=== PATIENT | male | born 1955 | race Caucasian/White ===

== ENCOUNTER → 2024-04-22 14:17 | Outpatient (REF) | payer OTHER, SELFPAY | LOC: HWRAD 14:17 | PROVIDERS: ATTENDING PHYSICIAN Family Medicine | DX: M25.552 Pain in left hip (principal) | CPT/HCPCS: 73502 ==

== ENCOUNTER 2024-04-25 23:23 | Inpatient (IN) | payer OTHER, SELFPAY ==
[2024-04-25 19:06] VITALS: BP 168/101; BMI 28.1
[2024-04-25] MEDS: TYLENOL 1000 MG PO (19:12)
[2024-04-25 19:36] LABS: COVID-19 Antigen Negative (Negative)
[2024-04-25] MEDS: NSS 1000 IV (20:04)
[2024-04-25 20:07] VITALS: BP 128/69
[2024-04-25 20:12] LABS: % Basophils 0.1 % (0-2); % Immature Granulocytes 0.4 % (0-0.5); % Lymphocytes 4.1 % (20.5-51.1); % Monocytes 5.8 % (1.7-9.3); % Neutrophils 89.6 % (42.2-75.2); Absolute Lymphocytes 0.4 10^3/uL (1.2-3.4); Absolute Monocytes 0.5 10^3/uL (0.1-0.6); Absolute Neutrophils 7.6 10^3/uL (1.4-6.5); Hematocrit 43.3 % (39.0-52.0); Hemoglobin 15.2 g/dL (13.0-18.0); Mean Corp Hgb Conc. 35.1 g/dL (33.0-37.0); Mean Corpuscular Hgb 29.7 pg (27.0-31.0); Mean Corpuscular Volume 84.6 fL (80.0-94.0); Mean Platelet Volume 9.6 fL (7.4-10.4); Nucleated Red Blood Cells % 0 % (-); Platelet Count 220 10^3/uL (130-400); Red Blood Cell Count 5.12 10^6/uL (4.70-6.10); Red Cell Dist. Width 13.1 % (11.5-14.5); White Blood Cell Count 8.5 10^3/uL (4.8-10.8)
[2024-04-25 20:30] LABS: ALT (SGPT) 49 U/L (0-50); AST (SGOT) 39 U/L (17-59); Albumin 4.3 g/dl (3.5-5.0); Alkaline Phosphatase 73 U/L (38-126); Blood Urea Nitrogen 21 mg/dl (9-20); Calcium 9.1 mg/dl (8.4-10.2); Carbon Dioxide 23 mmol/L (22-30); Chloride 104 mmol/L (98-107); Estimated Creatinine Clearance 73 ml/min; Glucose 134 mg/dl (70-99); Lactic Acid 0.9 mmol/L (0.7-2.0); Lipase 81 U/L (23-300); Potassium 3.9 mmol/L (3.5-5.1); Sodium 135 mmol/L (135-145); Total Bilirubin 1.1 mg/dl (0.2-1.3); Total Protein 7.2 g/dl (6.3-8.2); eGFR > 60.00
--- NOTE | 2024-04-25 20:34 | ED.GENMED ---
History of Present Illness
General
Chief Complaint: Abdominal Symptoms
Source: patient
Exam Limitations: none
Time Seen by Provider: 04/25/24 19:52
Nursing documentation reviewed up to this point in time: agreed with
History of Present Illness
History of Present Illness:
The patient is a 68-year-old man with a past medical history of diverticulitis who presents with 3 days of left lower abdominal pain. Patient reports that the symptoms nearly go away during the day but got worse at night. Currently, patient states
the pain is sharp when he coughs and touches the area and is associated with nausea. He denies diarrhea and constipation. He denies any urinary symptoms.
Past History
Past History
ED Past Medical History: HTN and Hypercholesterolemia
ED Past Surgical History: Orthopedic
Social History
Tobacco: Non-smoker
Alcohol: Other
Personal:
Living: with family
Employment: Employed
Family History
Family History: Other
Review of Systems
Review of Systems
Allergies reviewed?: Yes
All Other Systems: ROS reviewed and negative except as documented in HPI and ROS
Constitutional: Reports no symptoms
EENT: Reports no symptoms
Respiratory: Reports no symptoms
Cardiac: Reports no symptoms
ABD/GI: Reports abdominal pain and nausea
: Reports no symptoms
Musculoskeletal: Reports no symptoms
Skin: Reports no symptoms
Neurological: Reports no symptoms
Endocrine: Reports no symptoms
Hematologic/Lymphatic: Reports no symptoms
Psychiatric: Reports no symptoms
Phy Exam
Physical Exam
Physical Exam:
Physical Exam
General: no apparent distress but flushed
Neck: supple. no meningeal signs. normal psoterior pharynx
Heart: s1/s2 regular rate and rhythm, no murmur. equal radial pulses.
Lungs: no acute respiratory distress. clear bilaterally
Abdomen: normal bowel sounds. not tender. Left lower quadrant tenderness. No rebound or guarding. No pulsatile mass
Neuro: alert and oriented. no focal neurological deficits
Skin: no rash
Psychiatric: well kept. interactive and cooperative
Extremities: no edema. no calf tenderness. negative homans. good distal pulses
Course
Orders/Labs/Results
Orders:
Orders
04/25/24 19:11
Acetaminophen [Tylenol] 1,000 mg .ROUTE .STK-MED ONE
04/25/24 19:12
Acetaminophen [Tylenol] 1,000 mg PO NOW STA
04/25/24 19:13
COVID-19 Antigen Urgent
Source: Nasal Swab
04/25/24 19:53
0.9% Sodium Chloride 1000 ml [Nss] 1,000 ml IV BOLUS
04/25/24 19:58
Complete Blood Count/With Diff Urgent
Comprehensive Metabolic Panel Urgent
Lactic Acid Urgent
Lipase Urgent
04/25/24 20:34
CT Abd/pelvis W Iv Cont Urgent
Comment:
Reason For Exam: LLQ pain
04/25/24 20:35
Ketorolac [Toradol] 30 mg IV NOW STA
Ondansetron Injectable [Zofran] 4 mg IV NOW STA
04/25/24 22:50
MetroNIDAZOLE 500 MG/100 ML [Flagyl 500 mg] 100 ml IV ONCE
04/25/24 22:51
LevoFLOXacin 500 MG/100 ML [Levaquin] 500 mg in 100 ml IV NOW
04/25/24 23:14
Urinalysis Reflex To Culture Urgent
Date Specimen was Collected: 04/25/24
Time Specimen was Collected: 23:14
Abnormal Lab Results
04/25/24
19:58
Absolute Neuts (auto) 7.6 H 10^3/uL
(1.4-6.5)
Absolute Lymphs (auto) 0.4 L 10^3/uL
(1.2-3.4)
Neutrophils % 89.6 H %
(42.2-75.2)
Lymphocytes % 4.1 L %
(20.5-51.1)
BUN 21 H mg/dl
(9-20)
Glucose 134 H mg/dl
(70-99)
04/25/24 19:58
04/25/24 19:58
Vital Signs
Initial and Last Documented VS:
Initial Vital Signs
Temp Pulse Resp BP Pulse Ox
100.5 F H 111 20 168/101 98
04/25/24 19:06 04/25/24 19:06 04/25/24 19:06 04/25/24 19:06 04/25/24 19:06
Last Documented Vital Signs
Temp Pulse Resp BP Pulse Ox
100.5 F H 106 15 128/69 98
04/25/24 19:06 04/25/24 20:07 04/25/24 20:07 04/25/24 20:07 04/25/24 19:06
MDM/Problems Addressed
Differential Diagnosis Includes:
Uncomplicated diverticulitis, diverticulitis with perforation, diverticulitis with abscess, UTI
MDM/Problems Addressed:
Patient presents with acute fever and left lower abdominal pain
Chronic conditions affecting care:
Patient may have acute diverticulitis from chronic diverticulosis
Acute Exacerbation and/or Progression of Chronic Illness:
Patient may have acute diverticulitis from chronic diverticulosis
*Radiology
Radiology exam reviewed: radiology read reviewed
*Pulse Oximetry
Patient hypoxic: no
*EKG
Interpreted by ED Provider?: NA
*House Cleaner Interpretation
Rate: normal
Interpretation: normal
Rhythm: sinus
*Critical Care Note
Total Time (30-74mins, 75-104mins- exclusive of procedures): Not Applicable
Data Reviewed
Review of Other/Old Records Reveals: Radiology Studies (Patient had a CAT scan done in 2014 which showed acute diverticulitis)
Source: patient and spouse
Patient Management
Social determinants of health affecting care: Living situation and Strong social support
Discussion with other providers: Hospitalist and Other (Dr. Garay made aware of patient's perforation)
ED Attending Note
-
Portions of this chart may have been created with voice recognition software.� Occasional wrong word or��sound alike� substitutions may have occurred due to the inherent limitations of voice recognition software.
Discharge Plan
Departure
Patient Disposition: Admit
Date of Disposition: 04/25/24
Time of Disposition: 23:23
Admit to: Med/Surg
Presentation/result/management discussed w/ accepting MD/DO: Hospitalist
Patient with high blood pressure during this ER visit?: Yes
Condition: Good
Covid-19: Not Applicable
Discharge Problem:
Acute diverticulitis with perforation
Referrals:
Jasiel Grove MD [Family Provider] -
Interventions
Interventions:
*Risk Screen - Suicide Last Done: 04/25/24 19:06
*General Assessment Last Done: 04/25/24 20:09
*Neglect/Abuse Screening Last Done: 04/25/24 19:06
ED- Fall Risk Assessment Last Done: 04/25/24 20:09
[facility] Assessment Last Done: 04/25/24 20:09
Discharge Date and Time
Print Language: IRISH
[2024-04-25] MEDS: TORADOL 30 MG IV (20:53)
[2024-04-25] MEDS: ZOFRAN 4 MG IV (20:53)
[2024-04-25 21:00] VITALS: BP 116/64
[2024-04-25] MEDS: LEVAQUIN 100 IV (23:08)
[2024-04-25 23:19] LABS: Urine Albumin Trace (Neg - Trace); Urine Bilirubin 1+ (Negative); Urine Character Clear (Clear); Urine Color Yellow; Urine Glucose Negative (Negative); Urine Ketone Trace (Negative); Urine Leukocyte Negative (Negative); Urine Nitrite Negative (Negative); Urine Occult Blood 3+ (Negative); Urine Urobilinogen 3+ (Neg - 1+)
--- NOTE | 2024-04-25 23:42 | HPS.HSE ---
Family Physician
-
Family Physician: Jasiel Grove
Chief Complaint
-
Abd Pain
History of Present Illness
Patient is a 68y M with PMH significant for hypertension and diverticular disease who presents to ED complaining of abdominal pain, fever and malaise x 3 days. Patient states that symptoms started 3 days ago with lower abdominal discomfort and
mild nausea. 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 Patient felt constipated and noted that he spent a few days straining for a BM and had only
small, formed movements. Today his pain seemed worse and he had fever at home prompting him to present to the ED for evaluation.
His pain is in the LLQ and he notes that prior episodes of diverticulitis have been more proximal.
Here in the ED he had a large, loose bowel movement. No noted blood, melena, etc.
Medical History
Past Medical History
Past Medical History: Reports Other
Additional Past Medical History:
Hypertension
Dyslipidemia
Diverticular Disease
Past Surgical History: Reports Other
Additional Past Surgical History:
Bilateral Inguinal Herniorrhaphy
C5-6 Discectomy
Right Achilles Repair
Social History
Tobacco: Non-smoker
Alcohol: Occasional
Drug: None
Family History
Family History: Other (Father: [place] (53yo))
Allergies / Home Medications
Allergies reflects when Allergies were last updated in [employer].
Home Medications with original date entered in [employer]
Allergy/Medication List:
Allergies
Allergy/AdvReac Type Severity Reaction Status Date / Time
No Known Allergies Allergy Unverified 05/26/10 10:14
Home Medications
aspirin 81 mg chewable tablet 81 mg PO DAILY 04/25/24
omega 0-ysf-ocv-fish oil 1,200 mg (144 mg-216 mg) capsule (Fish Oil) 1 cap PO DAILY 04/25/24
simvastatin 20 mg tablet 20 mg PO DAILY 04/25/24
Patient also takes a 'blood pressure medication' but he cannot recall the name / dose.
Review of Systems
-
History Source: Patient
A 12 point ROS was completed and negative except as noted: Yes
Constitutional: Reports Fever, Fatigue and Chills
EENT: Denies Sore Throat
Respiratory: Denies Cough or Trouble Breathing
Cardiac: Denies Chest Pain or Palpitations
Abdomen/GI: Reports Abdominal Pain, Nausea, Diarrhea, Constipated and Anorexia; Denies Vomiting, Bloody Stools or Black Stools
: Denies Dysuria, Frequency or Flank Pain
Musculoskeletal: Denies Joint Pain or Edema
Neurological: Denies Dizzy or Headache
Psych: Denies Depression or Anxiety
Physical Exam
Vital Signs
Vital Signs
Temp Pulse Resp BP Pulse Ox
100.5 F H 106 15 128/69 98
04/25/24 19:06 04/25/24 20:07 04/25/24 20:07 04/25/24 20:07 04/25/24 19:06
Physical Exam
General: Other (68y M in no acute distress.)
HEENT: Moist mucous membranes and PERRLA
Respiratory: Clear; No Wheezes, Rales or Rhonchi
Cardiac: S1/S2, Regular Rhythm and Murmur (II/ AC)
GI: Soft, Non Distended, Normal Bowel Sounds and Other (Pos tenderness in the LLQ without rebound. Small, nontender, easily reducible umbilical hernia.)
Musculoskeletal: No Clubbing, No Cyanosis and No Edema
Neuro: AO x 3
Laboratory Results
-
04/25/24 19:58
04/25/24 19:58
Laboratory Results
Lactic Acid 0.9 mmol/L (0.7-2.0) 04/25/24 19:58
Total Bilirubin 1.1 mg/dl (0.2-1.3) 04/25/24 19:58
AST 39 U/L (17-59) 04/25/24 19:58
ALT 49 U/L (0-50) 04/25/24 19:58
Alkaline Phosphatase 73 U/L (38-126) 04/25/24 19:58
Lipase 81 U/L (23-300) 04/25/24 19:58
Impression/Plan
-
A/P: Patient is a 68y M with PMH significant for hypertension and diverticular disease who presents to ED complaining of 3 days of abdominal pain.
Acute Sigmoid Diverticulitis with Perforation
- Admit for further evaluation and treatment.
- CT scan with sigmoid diverticulitis and scattered small pockets of air diffusely throughout the abdomen.
- IV abx for now with Zosyn.
- Supportive care including NPO, IVFs, pain control, etc.
- Follow for clinical improvement.
- Surgery consulted to follow.
- Monitor for any new / worsening symptoms.
Benign Hypertension
- Stable. Patient unaware of home med - will need formal med rec in the AM.
- Monitor BP and resume usual med once confirmed.
Dyslipidemia
- Stable. Hold statin acutely.
DVT Prophylaxis: SCDs
Code Status: Full
[2024-04-25 23:47] LABS: Urine Bacteria Few (Negative); Urine Squamous Cell 0-2 /LPF (Few)
[2024-04-26] MEDS: FLAGYL 500 MG 100 IV (00:16)
[2024-04-26] MEDS: DILAUDID 0.5 MG IV ×4 (01:13→21:10)
[2024-04-26] MEDS: LR 1000 IV ×3 (01:15→23:59)
[2024-04-26] MEDS: ZOSYN 50 IV ×4 (01:16→19:56)
--- NOTE | 2024-04-26 02:05 | PTCARENOTE ---
no delay received. aaox3. vss. abd tender to touch. 0.5mg Dilaudid admin. lr @ 100. Zosyn infusing. plan of care updated. call white in reach. will monitor.
[2024-04-26 07:21] LABS: Hematocrit 38.9 % (39.0-52.0); Hemoglobin 13.5 g/dL (13.0-18.0); Mean Corp Hgb Conc. 34.7 g/dL (33.0-37.0); Mean Corpuscular Hgb 30.3 pg (27.0-31.0); Mean Corpuscular Volume 87.2 fL (80.0-94.0); Mean Platelet Volume 9.9 fL (7.4-10.4); Platelet Count 182 10^3/uL (130-400); Red Blood Cell Count 4.46 10^6/uL (4.70-6.10); Red Cell Dist. Width 13.2 % (11.5-14.5); White Blood Cell Count 8.6 10^3/uL (4.8-10.8)
[2024-04-26 07:40] VITALS: BP 125/73
[2024-04-26 07:46] LABS: Blood Urea Nitrogen 23 mg/dl (9-20); Calcium 8.4 mg/dl (8.4-10.2); Carbon Dioxide 23 mmol/L (22-30); Chloride 103 mmol/L (98-107); Estimated Creatinine Clearance 73 ml/min; Glucose 107 mg/dl (70-99); Potassium 3.9 mmol/L (3.5-5.1); Sodium 136 mmol/L (135-145); eGFR > 60.00
--- NOTE | 2024-04-26 07:52 | W.PN.HOSP.TC ---
Today's Communication/Plan
-
see note
Assessment / Plan
Assessment / Plan
Patient is a 68y M with PMH significant for hypertension and diverticular disease who presents to ED complaining of 3 days of abdominal pain.
Acute Sigmoid Diverticulitis with Perforation
- CT scan with sigmoid diverticulitis and scattered small pockets of air diffusely throughout the abdomen.
- IV abx for now with Zosyn.
- Supportive care including NPO, IVFs, pain control, etc.
- Follow for clinical improvement.
- Surgery consulted to follow.
- Check EKG if needs to go to OR.
- No overt guarding/rigidity on exam, nonetheless presumed bacterial peritonitis with diffuse pneumoperitoneum. will involve ID if planned to be managed conservatively.
Benign Hypertension
- stable off BP meds
- patient not sure about meds, will call pharmacy later and get list
Dyslipidemia
- Stable. Hold statin acutely.
DVT Prophylaxis: SCDs
Code Status: Full
Ct scan images reviewed and interpreted personally
at risk of further bacterial peritonitis/abscess development/septic shock
Anticipated Discharge: > 48 hours
Subjective/Interval History
-
Date of Service: April 26, 2024
resting comfortably in bed
have diarrhea. no blood
periodic fever episode
Objective Data
-
Labs:
Laboratory Results
04/25/24 04/26/24
19:58 06:09
WBC 8.5 8.6
Hgb 15.2 13.5
Hct 43.3 38.9 L
Plt Count 220 182
Sodium 135 136
Potassium 3.9 3.9
Chloride 104 103
Carbon Dioxide 23 23
BUN 21 H 23 H
Creatinine 0.9 0.9
Glucose 134 H 107 H
Calcium 9.1 8.4
Total Bilirubin 1.1
AST 39
ALT 49
Alkaline Phosphatase 73
Vital Signs:
Vital Signs
Temp Pulse Resp BP Pulse Ox
97.7 F 90 18 125/73 97
04/26/24 07:40 04/26/24 07:40 04/26/24 07:40 04/26/24 07:40 04/26/24 07:40
Review of Systems
-
Respiratory: Reports No Symptoms
Cardiac: Reports No Symptoms
Abdomen/GI: Reports Abdominal Pain and Diarrhea; Denies Nausea or Vomiting
Physical Exam
-
General: No Apparent Distress and Comfortable
HEENT: Negative Oxygen
Respiratory: Clear to Auscultation
Cardiac: Regular Rhythm and S1/S2; Negative Murmur or Rub
GI: Soft, Nondistended, Normal Bowel Sounds and Tender (Left flank)
Musculoskeletal: No Edema
Neuro: Awake, Alert, Oriented, No Motor Deficits and Nonfocal/Grossly Intact
Psych: Calm
[2024-04-26] MEDS: TYLENOL 650 MG PO ×2 (10:33→16:43)
--- NOTE | 2024-04-26 11:14 | CON.CRS ---
Addendum entered and electronically signed by Chauncey Garay MD 04/26/24 14:08:
Patient seen and examined. Agree with assessment plan as documented below.
Patient is a 68 yo M with a PMH notable for diverticulitis and s/p bilateral inguinal herniorrhaphy who presents with 3 days of abdominal pain. He reports intermittent LLQ and suprapubic discomfort. Associated nausea, no vomiting. Low-grade
fevers. Symptoms persisted and worsened prompting presentation to the ED. He denies any urinary symptoms. Currently abdominal pain has significantly improved. No nausea or vomiting. Passing flatus and loose, nonbloody stools. Prior colonoscopy
greater than 10 years ago, receives yearly Cologuard's. Reports 2 prior attacks of uncomplicated diverticulitis managed with oral antibiotics.
Gen: NAD
Abd: soft, tender to palpation in LLQ, mild distension, non-peritoneal
Patient is a 68 yo M p/w acute diverticulitis with possible microperforation.
CT scan imaging and labs were reviewed. Clinical improvement. Abdominal exam with focal tenderness, but nonperitoneal. No plans for surgical intervention at this time. Recommend medical management with IV antibiotics and bowel rest (okay for
clears). All questions answered.
- No indication for surgery at this time. If he were to worsen he would require a colectomy with colostomy creation.
� Advance diet to clears.
� Continue IV antibiotics.
� Will need an eventual colonoscopy as an outpatient.
� Will follow.
Original Note:
Consultation
-
Date/Time Consultation Requested: 04/26/2024, 00:50
Date/Time Consultation Performed: 04/26/2024, 08:30
Requesting Provider: Cory Mccauley DO
Performing Provider: Chauncey Garay MD
Reason for Consultation: diverticulitis
Medical History
-
Chief Complaint: abdominal pain
History of Present Illness:
68-year-old male, with a past medical history of 2 prior attacks of diverticular disease, presented to the emergency department last night due to abdominal pain. The patient states that the pain started about 3 days ago and he felt sick to his
stomach and was nauseous. The pain resolved the following day but then reappeared later that evening and the suprapubic area. Yesterday the pain had resolved again but then around lunchtime the pain returned and now radiated from the suprapubic
area to the left lower quadrant. He denies chills but had a fever when he came into the ER. He has intermittent nausea but no vomiting. Usually his bowel movements are regular but he was constipated for the past several days until this morning
when he had a loose bowel movement. In the past he has had 2 prior attacks of diverticulitis. Both of them were about 15 years ago and were within a year of each other. The first attack was diagnosed clinically and he was on outpatient
antibiotics. The second attack he had outpatient imaging which showed sigmoid diverticulitis on the CT. Again he was treated with outpatient antibiotics. His last colonoscopy was over 10 years ago and he has had no polyps. He does yearly
Cologuard which have been negative. He is on aspirin 81 mg for cardioprotective reasons. He has no family history of rectal or colon cancer. He has never had prior abdominal surgery.
On admission his WBC was 8.5 and is 8.6 this morning. He initially had a fever last night of 100.5 but this has resolved. His vitals are otherwise normal. CT of the abdomen pelvis shows diverticulosis and sigmoid diverticulitis with perforation.
No focal collection or abscess. We have been consulted for further surgical opinion.
Past Medical History
Past Medical History: HTN, Hypercholesterolemia and Other (2 prior attacks of diverticulitis 15 years ago)
Past Surgical History: Other (Bilateral Inguinal Herniorrhaphy, C5-6 Discectomy, Right Achilles Repair)
Social History
Tobacco: Non-Smoker
Alcohol: Occasional
Drug: None
Family History
Family History: Reviewed & Not Pertinent
Allergies / Home Medications
Allergy/AdvReac Type Severity Reaction Status Date / Time
No Known Allergies Allergy Unverified 05/26/10 10:14
�Medication �Instructions �Recorded �Confirmed �Type
aspirin 81 mg chewable tablet 81 mg PO DAILY 04/25/24 04/25/24 History
omega 7-alr-nfn-fish oil 1,200 mg 1 cap PO DAILY 04/25/24 04/25/24 History
(144 mg-216 mg) capsule (Fish Oil)
simvastatin 20 mg tablet 20 mg PO DAILY 04/25/24 04/25/24 History
Review of Systems
-
History Source: Patient
Constitutional: Fever
Abdomen/GI: Abdominal Pain, Nausea, Diarrhea and Constipated
A 10 point review of systems was completed, and was negative except as per HPI.
Physical Exam
Vital Signs
Temp 97.7 F 04/26/24 07:40
Pulse 90 04/26/24 07:40
Resp Rate 18 04/26/24 07:40
Blood pressure 125/73 04/26/24 07:40
SaO2 97 04/26/24 07:40
04/25/24 04/26/24 04/27/24
06:59 06:59 06:59
Actual Weight 78.925 kg
Body Mass Index (BMI) 28.1
Lab Results / Allergies
04/26/24 06:09
04/26/24 06:09
WBC 8.6 10^3/uL (4.8-10.8) 04/26/24 06:09
Hgb 13.5 g/dL (13.0-18.0) 04/26/24 06:09
Hct 38.9 % (39.0-52.0) L 04/26/24 06:09
Plt Count 182 10^3/uL (130-400) 04/26/24 06:09
Abs Immat Gran (auto) 0.0 10^3/uL (0-0.05) 04/25/24 19:58
Neutrophils % 89.6 % (42.2-75.2) H 04/25/24 19:58
Allergy/AdvReac Type Severity Reaction Status Date / Time
No Known Allergies Allergy Unverified 05/26/10 10:14
Data Reviewed
-
CT Scan: Image Personally Visualized and interpreted, Discussed with Physician and Discussed with Patient
Labs: Labs Reviewed by me, Discussed with Physician and Discussed with Patient
Assessment / Plan
-
Assessment: 68-year-old male with uncomplicated sigmoid diverticulitis, third attack. Initially febrile but this has resolved. WBC 8.6.
Plan:
-No indication for surgery at this time. If he were to worsen he would require a colectomy with colostomy creation.
� Advance diet to clears.
� Continue IV antibiotics.
� Will need an eventual colonoscopy as an outpatient.
� Will follow.
[2024-04-26 15:25] VITALS: BP 137/85
[2024-04-26 20:15] VITALS: BP 136/72
[2024-04-26 23:20] VITALS: BP 127/75
[2024-04-27] MEDS: TYLENOL 650 MG PO ×3 (01:05→17:18)
[2024-04-27] MEDS: ZOSYN 50 IV ×4 (01:06→19:37)
[2024-04-27 07:35] VITALS: BP 131/76
--- NOTE | 2024-04-27 08:08 | W.PN.GS2 ---
Today's Communication / Plan
-
-- No major changes, continue with medical management
Assessment / Plan
-
Patient is a 68 yo M p/w acute diverticulitis
Slow clinical improvement.
Currently AVSS
Repeat labs pending
No plans for surgical intervention at this time. Continue with medical management.
-- Clears
-- Abx: Zosyn
-- Continue IVF
-- Pain control: Tylenol and IV Dilaudid PRN
Subjective Data
-
Date of Service: April 27, 2024
Reports improved abdominal pain, though not completely resolved. Passing large amounts of liquid, nonbloody stool. No nausea or vomiting. Low-grade fever yesterday evening.
Objective Data
-
Intake and Output
04/26/24 04/27/24 04/28/24
06:59 06:59 06:59
Intake Total 4390 / 4390
Balance 4390 / 4390
Intake:
Oral fluids 1140 / 1140
IV fluids (Total) 3050 / 3050
IV piggybacks 200 / 200
Other:
Number of approximated MODERATE 3
amounts of urine
Vital Signs
Temp Pulse Resp BP Pulse Ox
97.8 F 77 18 131/76 98
04/27/24 07:35 04/27/24 07:35 04/27/24 07:35 04/27/24 07:35 04/27/24 07:35
Calcium 8.4 mg/dl (8.4-10.2) 04/26/24 06:09
Total Bilirubin 1.1 mg/dl (0.2-1.3) 04/25/24 19:58
AST 39 U/L (17-59) 04/25/24 19:58
ALT 49 U/L (0-50) 04/25/24 19:58
Alkaline Phosphatase 73 U/L (38-126) 04/25/24 19:58
Total Protein 7.2 g/dl (6.3-8.2) 04/25/24 19:58
Albumin 4.3 g/dl (3.5-5.0) 04/25/24 19:58
Physical Exam
-
Gen: NAD
Abd: soft, tender to palpation in LLQ, mild distension, non-peritoneal
[2024-04-27 08:41] LABS: Hematocrit 36.3 % (39.0-52.0); Hemoglobin 12.8 g/dL (13.0-18.0); Mean Corp Hgb Conc. 35.3 g/dL (33.0-37.0); Mean Corpuscular Hgb 30.3 pg (27.0-31.0); Mean Corpuscular Volume 85.8 fL (80.0-94.0); Mean Platelet Volume 10.2 fL (7.4-10.4); Platelet Count 186 10^3/uL (130-400); Red Blood Cell Count 4.23 10^6/uL (4.70-6.10); Red Cell Dist. Width 13.4 % (11.5-14.5); White Blood Cell Count 8.3 10^3/uL (4.8-10.8)
--- NOTE | 2024-04-27 08:51 | W.PN.HOSP.TC ---
Today's Communication/Plan
-
see note
Assessment / Plan
Assessment / Plan
Patient is a 68y M with PMH significant for hypertension and diverticular disease who presents to ED complaining of 3 days of abdominal pain.
Acute Sigmoid Diverticulitis with Perforation
-CT scan with sigmoid diverticulitis and scattered small pockets of air diffusely throughout the abdomen.
-IV abx for now with Zosyn.
-Surgery consulted to follow.
-Abdominal examination remains benign without any guarding rigidity today. Left lower quadrant tenderness present on exam.
-Started on clear liquid diet by general surgery, further advancement per GS
Benign Hypertension
- stable off BP meds
- patient not sure about meds, will call pharmacy later and get list
Dyslipidemia
- Stable. Hold statin acutely.
DVT Prophylaxis: SCDs
Code Status: Full
Care plan discussed with gen surg
Anticipated Discharge: > 48 hours
Subjective/Interval History
-
Date of Service: April 27, 2024
Patient having diarrhea, episode of fever last night
Not feeling better yet
Lower abdominal tenderness present
Objective Data
-
Labs:
Laboratory Results
04/27/24
08:22
WBC 8.3
Hgb 12.8 L
Hct 36.3 L
Plt Count 186
Sodium Pending
Potassium Pending
Chloride Pending
Carbon Dioxide Pending
BUN Pending
Creatinine Pending
Glucose Pending
Calcium Pending
Vital Signs:
Vital Signs
Temp Pulse Resp BP Pulse Ox
97.8 F 77 18 131/76 98
04/27/24 07:35 04/27/24 07:35 04/27/24 07:35 04/27/24 07:35 04/27/24 07:35
I&O
04/26/24 04/27/24 04/28/24
06:59 06:59 06:59
Intake Total 4343 / 4348
Balance 4390 / 4390
Review of Systems
-
Respiratory: Reports No Symptoms
Cardiac: Reports No Symptoms
Abdomen/GI: Reports No Symptoms
Physical Exam
-
General: No Apparent Distress and Comfortable
HEENT: Negative Oxygen
Respiratory: Clear to Auscultation
Cardiac: Regular Rhythm and S1/S2; Negative Murmur or Rub
GI: Soft, Nondistended, Normal Bowel Sounds and Tender (Left flank)
Musculoskeletal: No Edema
Neuro: Awake, Alert, Oriented, No Motor Deficits and Nonfocal/Grossly Intact
Psych: Calm
[2024-04-27 09:15] LABS: Blood Urea Nitrogen 17 mg/dl (9-20); Calcium 8.6 mg/dl (8.4-10.2); Carbon Dioxide 26 mmol/L (22-30); Chloride 102 mmol/L (98-107); Estimated Creatinine Clearance 73 ml/min; Glucose 103 mg/dl (70-99); Potassium 3.8 mmol/L (3.5-5.1); Sodium 134 mmol/L (135-145); eGFR > 60.00
[2024-04-27] MEDS: LR 1000 IV ×2 (11:23→23:16)
--- NOTE | 2024-04-27 16:06 | CM ---
Patient with Dx Acute Sigmoid Diverticulitis with Perforation. Clear liquids.
Attempted to speak with patient who was unavailable.
Spoke with patient's so Zafar Fischer;
the patient resides with his SO Radha in a 2 story house with 1 CORTES.
The patient has been independent in ADLs and ambulation. He had been active and working from home.
The patient has been unwell for about a week.
The patient has no DME or prior VN.
PCP - Jasiel Grove
Pharmacy - [facility]
The patient has 3 sons.
Son Amaury Fischer, new address [address], new cell [phone] - he is away on vacation
Son Zafar Fischer [place], cell [phone]
No CM d/c needs identified.
Plan home.
--- NOTE | 2024-04-27 16:12 | CM ---
Patient with Dx Acute Sigmoid Diverticulitis with Perforation. Clear liquids.
Attempted to speak with patient who was unavailable.
Spoke with patient's son Zafar Fischer;
the patient resides with his SO Radha in a 2 story house with 1 CORTES.
The patient has been independent in ADLs and ambulation. He had been active and working from home.
The patient has been unwell for about a week.
The patient has no DME or prior VN.
PCP - Jasiel Grove
Pharmacy - [facility]
The patient has 3 sons.
Son Amaury Fischer, new address [place] [address], new cell [phone] - he is away on vacation
Son Zafar Fischer [place], cell [phone]
No CM d/c needs identified.
Plan home.
[2024-04-27 23:06] VITALS: BP 130/72
[2024-04-28] MEDS: TYLENOL 650 MG PO ×2 (01:03→21:50)
[2024-04-28] MEDS: ZOSYN 50 IV ×4 (02:00→20:01)
[2024-04-28] MEDS: LR 1000 IV (07:12)
[2024-04-28 07:25] VITALS: BP 138/83
--- NOTE | 2024-04-28 09:10 | W.PN.CRS1 ---
Today's Communication / Plan
-
As below
Assessment/Plan
-
68-year-old male with PMH of HTN, HLD, diverticulitis (2 prior episodes, uncomplicated) who presents with acute abdominal pain, temp 100.5, WBC 8.5, CT showing perforated diverticulitis with tiny flecks of air in the pelvis and upper abdomen; being
treated nonoperatively, doing well
AFVSS
WBC 8.3, Hb 12.8, CR 0.9
� Advance to low residue; instructed patient to go slow; will go back to clears if any N/V or increasing abdominal pain
� Continue pain control, okay for p.o. meds
� Recommend Lovenox for DVT PPx
� OOB/IS
� Okay to stop IVF
� If diarrhea persists, consider C. difficile
� Appreciate hospitalist
Subjective Data
Subjective Data
Date of Service: April 28, 2024
No overnight events.
Pain significantly improved, no pain while laying down. Some pain with movement.
Denies nausea/vomiting. Tolerating clears.
-flatus +BMs (multiple liquid stools yesterday, improved today) +voiding
Pt is OOB.
Objective Data
-
Vital Signs
Temp Pulse Resp BP Pulse Ox
97.7 F 77 18 138/83 98
04/28/24 07:25 04/28/24 07:25 04/28/24 07:25 04/28/24 07:25 04/28/24 08:00
Intake & Output
04/27/24 04/28/24 04/29/24
06:59 06:59 06:59
Intake Total 4390 / 4390 4540 / 4540
Balance 4390 / 4390 4540 / 4540
Intake:
Oral fluids 1140 / 1140 2040 / 2040
IV fluids (Total) 3050 / 3050 2400 / 2400
IV piggybacks 200 / 200 100 / 100
Other:
Number of approximated SMALL 2
amounts of urine
Number of approximated MODERATE 3 3
amounts of urine
Number of unmeasured liquid
stools
Rectum 5
Physical Exam
-
General: No Acute Distress and AOx3
HEENT: Grossly Normal
Abdomen: Soft, Non Distended, Tender (Mildly tender in the LLQ), No Guarding and No Rebound
Skin: Warm and Dry
[2024-04-28 09:23] LABS: % Basophils 0.3 % (0-2); % Eosinophils 0.7 % (0-6); % Immature Granulocytes 0.3 % (0-0.5); % Monocytes 10.2 % (1.7-9.3); % Neutrophils 72.5 % (42.2-75.2); Absolute Eosinophils 0.1 10^3/uL (0-0.7); Absolute Lymphocytes 1.4 10^3/uL (1.2-3.4); Absolute Monocytes 0.9 10^3/uL (0.1-0.6); Absolute Neutrophils 6.5 10^3/uL (1.4-6.5); Hematocrit 41.2 % (39.0-52.0); Mean Corpuscular Hgb 29.7 pg (27.0-31.0); Mean Corpuscular Volume 87.5 fL (80.0-94.0); Mean Platelet Volume 9.5 fL (7.4-10.4); Nucleated Red Blood Cells % 0 % (-); Platelet Count 229 10^3/uL (130-400); Red Blood Cell Count 4.71 10^6/uL (4.70-6.10); Red Cell Dist. Width 13.2 % (11.5-14.5)
[2024-04-28 09:44] LABS: Blood Urea Nitrogen 15 mg/dl (9-20); Carbon Dioxide 27 mmol/L (22-30); Chloride 101 mmol/L (98-107); Estimated Creatinine Clearance 73 ml/min; Glucose 96 mg/dl (70-99); Sodium 137 mmol/L (135-145); eGFR > 60.00
--- NOTE | 2024-04-28 12:30 | W.PN.HOSP.TC ---
Today's Communication/Plan
-
Monitor vital signs and see plan
Continue to monitor symptoms with diet
Continue antibiotics
Possible DC tomorrow
Assessment / Plan
Assessment / Plan
Patient is a 68y M with PMH significant for hypertension and diverticular disease who presents to ED complaining of 3 days of abdominal pain.
Acute Sigmoid Diverticulitis with Perforation
-CT scan with sigmoid diverticulitis and scattered small pockets of air diffusely throughout the abdomen.
-IV abx for now with Zosyn.
-Surgery consulted to follow.
-Abdominal examination remains benign without any guarding rigidity . Left lower quadrant tenderness present on exam but much better
-Now on regular diet. Plan for possible DC tomorrow per surgery
Benign Hypertension
- stable off BP meds
- patient not sure about meds, will call pharmacy later and get list
Dyslipidemia
- Stable. Hold statin acutely.
DVT Prophylaxis: SCDs
Code Status: Full
General: No Apparent Distress and Comfortable
HEENT: Negative Oxygen
Respiratory: Clear to Auscultation
Cardiac: Regular Rhythm and S1/S2; Negative Murmur or Rub
GI: Soft, Nondistended, Normal Bowel Sounds and Tender (Left flank)
Musculoskeletal: No Edema
Neuro: Awake, Alert, Oriented, No Motor Deficits and Nonfocal/Grossly Intact
Psych: Calm
Anticipated Discharge: Within 24 hours
Subjective/Interval History
-
Date of Service: April 28, 2024
denies nausea
Objective Data
-
Labs:
Laboratory Results
04/28/24
09:05
WBC 9.0
Hgb 14.0
Hct 41.2
Plt Count 229 D
Sodium 137
Potassium 4.0
Chloride 101
Carbon Dioxide 27
BUN 15
Creatinine 0.9
Glucose 96
Calcium 9.0
Vital Signs:
Vital Signs
Temp Pulse Resp BP Pulse Ox
97.7 F 77 18 138/83 98
04/28/24 07:25 04/28/24 07:25 04/28/24 07:25 04/28/24 07:25 04/28/24 08:00
I&O
04/27/24 04/28/24 04/29/24
06:59 06:59 06:59
Intake Total 4390 / 4390 4540 / 4540 350 / 350
Balance 4390 / 4390 4540 / 4540 350 / 350
[2024-04-28 15:27] VITALS: BP 135/80
--- NOTE | 2024-04-28 15:39 | CM ---
Addendum entered by Mary Ellen Brown RN 04/29/24 11:35:
Correction: PCP is [facility] [phone].
Addendum entered by Mary Ellen Brown RN 04/28/24 15:41:
IMM signed and placed on chart. Patient PCP is Dr. Florencio SANTIAGO ([phone]).
Original Note:
Reviewed the chart notes and spoke with the patient and his significant other at the bedside. IMM signed and placed on chart. CM continues to be available to patient/family and is monitoring medical plan for needs at discharge.
Plan: Discharge to home with no additional needs being identified. Patient's significant other will transport.
[2024-04-28] MEDS: LOVENOX 40 MG SC (17:34)
[2024-04-28 23:08] VITALS: BP 128/71
[2024-04-29] MEDS: ZOSYN 50 IV ×2 (01:41→08:56)
[2024-04-29 07:20] VITALS: BP 131/77
[2024-04-29 07:55] LABS: Blood Urea Nitrogen 18 mg/dl (9-20); Calcium 8.7 mg/dl (8.4-10.2); Carbon Dioxide 27 mmol/L (22-30); Chloride 102 mmol/L (98-107); Estimated Creatinine Clearance 73 ml/min; Glucose 88 mg/dl (70-99); Potassium 3.6 mmol/L (3.5-5.1); Sodium 137 mmol/L (135-145); eGFR > 60.00
[2024-04-29 08:20] LABS: % Basophils 0.5 % (0-2); % Eosinophils 1.7 % (0-6); % Immature Granulocytes 0.5 % (0-0.5); % Lymphocytes 25.1 % (20.5-51.1); % Monocytes 10.4 % (1.7-9.3); % Neutrophils 61.8 % (42.2-75.2); Absolute Eosinophils 0.2 10^3/uL (0-0.7); Absolute Lymphocytes 2.2 10^3/uL (1.2-3.4); Absolute Monocytes 0.9 10^3/uL (0.1-0.6); Absolute Neutrophils 5.3 10^3/uL (1.4-6.5); Hemoglobin 13.8 g/dL (13.0-18.0); Mean Corp Hgb Conc. 34.5 g/dL (33.0-37.0); Mean Corpuscular Hgb 30.3 pg (27.0-31.0); Mean Corpuscular Volume 87.9 fL (80.0-94.0); Mean Platelet Volume 9.8 fL (7.4-10.4); Nucleated Red Blood Cells % 0 % (-); Platelet Count 257 10^3/uL (130-400); Red Blood Cell Count 4.55 10^6/uL (4.70-6.10); Red Cell Dist. Width 13.2 % (11.5-14.5); White Blood Cell Count 8.6 10^3/uL (4.8-10.8)
--- NOTE | 2024-04-29 08:23 | PN.CDI ---
CDI
- -
CDI:
Physician Documentation Request
Admit Date: 04/25/24 23:23
Dear Doctor Omid,
Please review the following and provide your response in the progress notes.
Clinical Indicators:
Pt admitted with Acute Sigmoid Diverticulitis with Perforation on IV Zosyn
On admission Tmax 100.5, HR 111
Please clarify which most accurately describes the patient:
SIRS due to a non-infectious source
Sepsis-POA
Systemic manifestations of infection, with 2 or more SIRS criteria which include:
Fever > 100.4 degrees F or hypothermia < 96.8 degrees F
Leukocytosis - WBC > 12,000 or leukopenia, WBC < 4,000 or > 10% bands
Tachycardia - > 90 beats per minute
Tachypnea - RR > 20 breaths per minute or PaCO2 < 32 mmHg
Source: Merck Manual 2013
Other ( please specify)
Use of terms such as suspected, likely, concern for, or probable (associated with a specific diagnosis that is being evaluated, monitored, or treated as if it exists) are acceptable and can be coded in the inpatient setting, when documented at the
time of discharge.
Thank you,
Gena Walls RN
CDI Specialist
[place] [facility]
Please use your independent medical judgment in providing your response.
--- NOTE | 2024-04-29 10:02 | W.PN.CRS1 ---
Today's Communication / Plan
-
okay for d/c from our perspective
Assessment/Plan
-
68-year-old male with PMH of HTN, HLD, diverticulitis (2 prior episodes, uncomplicated) who presents with acute abdominal pain, temp 100.5, WBC 8.5, CT showing perforated diverticulitis with tiny flecks of air in the pelvis and upper abdomen; being
treated nonoperatively, doing well
AFVSS
WBC 8.6
� Continue low residue diet
� Continue pain control, okay for p.o. meds
� Recommend Lovenox for DVT PPx
� OOB/IS
� Okay for discharge from our perspective. Follow up with Dr. Krishnamurthy in 3 to 4 weeks in the office. Will need eventual scope.
Subjective Data
Subjective Data
Date of Service: April 29, 2024
Patient states he feels well. He is tolerating diet. He has bowel function. He has no nausea or vomiting. He longer has pain just intermittent twinges.
Objective Data
-
Vital Signs
Temp Pulse Resp BP Pulse Ox
98.3 F 77 15 131/77 96
04/29/24 07:20 04/29/24 07:20 04/29/24 07:20 04/29/24 07:20 04/29/24 08:00
Intake & Output
04/28/24 04/29/24 04/30/24
06:59 06:59 06:59
Intake Total 4540 / 4540 2119
Balance 4540 / 4540 2119
Intake:
Oral fluids 2039 / 2039 1620 / 1620
IV fluids (Total) 2400 / 2400 300 / 300
IV piggybacks 100 / 100 200 / 200
Other:
Number of approximated SMALL 2 2
amounts of urine
Number of approximated MODERATE 3 7
amounts of urine
Number of unmeasured liquid
stools
Rectum 5 12
Lab Results
04/29/24 06:12
04/29/24 06:12
Physical Exam
-
General: No Acute Distress and AOx3
Abdomen: Soft, Non Distended and Non Tender
Skin: Warm and Dry
--- NOTE | 2024-04-29 11:14 | W.PN.HOSP.TC ---
Addendum entered and electronically signed by Espinoza Anne MD 04/29/24 11:21:
Time of discharge 38 minutes
Original Note:
Today's Communication/Plan
-
Monitor vital signs see plan
Pain control
Now improving, discharge on p.o. antibiotics
Patient will follow with colorectal surgery outpatient
Assessment / Plan
Assessment / Plan
Patient is a 68y M with PMH significant for hypertension and diverticular disease who presents to ED complaining of 3 days of abdominal pain.
Sepsis 2/2 Acute Sigmoid Diverticulitis with Perforation
bcx neg
-CT scan with sigmoid diverticulitis and scattered small pockets of air diffusely throughout the abdomen.
-IV abx for now with Zosyn. Switch to Augmentin on discharge
-Surgery consulted to follow.
-Abdominal examination remains benign without any guarding rigidity .
-Now on regular diet.
Benign Hypertension
- stable off BP meds
- patient not sure about meds, will call pharmacy later and get list
Dyslipidemia
- Stable. Hold statin acutely.
DVT Prophylaxis: SCDs,lovenox
Code Status: Full
General: No Apparent Distress and Comfortable
HEENT: Negative Oxygen
Respiratory: Clear to Auscultation
Cardiac: Regular Rhythm and S1/S2; Negative Murmur or Rub
GI: Soft, Nondistended, Normal Bowel Sounds and non tender
Musculoskeletal: No Edema
Neuro: Awake, Alert, Oriented
Psych: Calm
Anticipated Discharge: Today
Subjective/Interval History
-
Date of Service: April 29, 2024
denies pain
Objective Data
-
Labs:
Laboratory Results
04/29/24
06:12
WBC 8.6
Hgb 13.8
Hct 40.0
Plt Count 257
Sodium 137
Potassium 3.6
Chloride 102
Carbon Dioxide 27
BUN 18
Creatinine 0.9
Glucose 88
Calcium 8.7
Vital Signs:
Vital Signs
Temp Pulse Resp BP Pulse Ox
98.3 F 77 15 131/77 96
04/29/24 07:20 04/29/24 07:20 04/29/24 07:20 04/29/24 07:20 04/29/24 08:00
I&O
04/28/24 04/29/24 04/30/24
06:59 06:59 06:59
Intake Total 4540 / 4540 2119
Balance 4540 / 4540 2119
--- NOTE | 2024-04-29 11:20 | W.DCSUMMARY ---
Discharge Summary
Discharge Data
Date of Admission: 04/25/24
Date of Discharge: 04/29/24
-
Pending Results: No
Hospital Course
68-year-old male with past medical history of hypertension, diverticular disease came to the hospital with abdominal pain known to have sepsis secondary to acute sigmoid diverticulitis with perforation. Patient was seen by colorectal surgery
throughout hospitalization. Patient was initially started on IV antibiotic which were later transitioned to p.o. antibiotics upon discharge. His abdominal symptoms continue to improve while he was hospitalized and was able to tolerate low residue
diet prior to discharge. Once his symptoms continue to improve, he was then discharged home with instructions to follow-up with colorectal surgery outpatient.
Discharge Plan
-
Patient Disposition: Home (Routine Discharge)
Discharge Diagnosis/Procedures: Sepsis 2/2 Acute Sigmoid Diverticulitis with Perforation
Diet: Low Residue
Activity: As tolerated
Driving Restrictions: As prior to admission
Bathing Restrictions: None
Referrals:
[facility] MD [Family Provider] - in less than 1 week
Rad Krishnamurthy MD [Active] - in three to four weeks
Prescriptions:
New
acetaminophen 325 mg Tablet
650 mg PO Q4HPRN PRN (Reason: Mild Pain / Temp > 101) Qty: 0 0RF
amoxicillin-pot clavulanate 875-125 mg tablet
1 tab PO BID Qty: 20 0RF
Probiotic 10 billion cell capsule
10,000 mmu cells PO DAILY Qty: 10 0RF
Continued
simvastatin 20 mg Tablet
20 mg PO DAILY
aspirin 81 mg Tablet,Chewable
81 mg PO DAILY
omega 2-cgt-vyt-fish oil [Fish Oil] 1,200 (144-216) mg Capsule
1 cap PO DAILY
Discharge Orders:
Discharge Patient (As Directed); Ordered 04/29/24
Ordered By: Espinoza Anne
Discharge Date and Time
Discharge Date/Time: 04/29/24 12:11
Print Language: YAKUT
--- NOTE | 2024-04-29 11:38 | CM ---
Reviewed the chart notes. Patient being discharged to home today. No needs identified. Family will provide transportation. CM continues to be available to patient/family and is monitoring medical plan for needs at discharge.
Plan: Discharge to home today.
[2024-04-29 12:06] VITALS: BP 133/77
== END 2024-04-29 12:11 | disposition home or self-care (01) | DRG 872 ==
LOC: 2 SOUTH 23:23
PROVIDERS: Student in an Organized Health Care Education/Training Program; ADMITTING PHYSICIAN Hospitalist; ATTENDING PHYSICIAN Internal Medicine; EMERGENCY PHYSICIAN Emergency Medicine; FAMILY PHYSICIAN Family Medicine; OTHER PHYSICIAN Surgery
DX: A41.9 Sepsis, unspecified organism (principal); K57.20 Diverticulitis of large intestine with perforation and abscess without bleeding; I10 Essential (primary) hypertension; Z79.82 Long term (current) use of aspirin
CPT/HCPCS: 74177; 80048; 80053; 81003; 81015; 83605; 83690; 85025; 85027; 87040; 87811; 93005; 96361; 96365; 96367; 96375; 99285; Q9967

== ENCOUNTER 2024-11-05 06:24 | Day surgery (SDC) | payer OTHER, SELFPAY | END 2024-11-05 09:02 | disposition home or self-care (01) | LOC: GI 06:24 | PROVIDERS: ATTENDING PHYSICIAN Surgery | DX: Z12.11 Encounter for screening for malignant neoplasm of colon (principal); K57.30 Diverticulosis of large intestine without perforation or abscess without bleeding; K64.9 Unspecified hemorrhoids; D12.3 Benign neoplasm of transverse colon; Z01.818 Encounter for other preprocedural examination | CPT/HCPCS: 45380; 88305 ==

== ENCOUNTER 2024-11-06 11:34 | Inpatient (IN) | payer OTHER, SELFPAY ==
[2024-10-31 08:43] LABS: Hematocrit 46.9 % (39.0-52.0); Hemoglobin 15.2 g/dL (13.0-18.0); Mean Corp Hgb Conc. 32.4 g/dL (33.0-37.0); Mean Corpuscular Hgb 29.1 pg (27.0-31.0); Mean Corpuscular Volume 89.8 fL (80.0-94.0); Mean Platelet Volume 9.5 fL (7.4-10.4); Platelet Count 278 10^3/uL (130-400); Red Blood Cell Count 5.22 10^6/uL (4.70-6.10); Red Cell Dist. Width 12.9 % (11.5-14.5); White Blood Cell Count 6.9 10^3/uL (4.8-10.8)
[2024-10-31 08:53] LABS: INR 0.98; PT 13.3 Sec (11.4-14.6)
[2024-10-31 08:54] LABS: APTT 30.1 Sec (23.4-35.0)
[2024-10-31 09:10] LABS: ALT (SGPT) 39 U/L (0-50); AST (SGOT) 26 U/L (17-59); Albumin 4.6 g/dl (3.5-5.0); Alkaline Phosphatase 54 U/L (38-126); Blood Urea Nitrogen 17 mg/dl (9-20); Calcium 9.6 mg/dl (8.4-10.2); Carbon Dioxide 29 mmol/L (22-30); Chloride 101 mmol/L (98-107); Glucose 108 mg/dl (70-99); Potassium 4.5 mmol/L (3.5-5.1); Sodium 140 mmol/L (135-145); Total Bilirubin 0.8 mg/dl (0.2-1.3); Total Protein 7.7 g/dl (6.3-8.2); eGFR > 60.00
[2024-10-31 10:33] LABS: Glycohemoglobin (HgbA1c) 6.1 % (4.0-5.6)
[2024-10-31 14:07] VITALS: BMI 30.5
[2024-11-06] VITALS (15 sets, daily range): BP systolic 1–149; BP diastolic 68–85; BMI 30.5; BMI 30.8
[2024-11-06] MEDS: NEURONTIN 600 MG PO (12:06)
[2024-11-06] MEDS: ENTEREG 12 MG PO (12:06)
[2024-11-06] MEDS: TYLENOL 1000 MG PO (12:06)
--- NOTE | 2024-11-06 17:59 | W.IMMPOSTOP ---
Addendum entered and electronically signed by Ryan Subramanian MD 11/06/24 18:12:
Updated patient's significant other, Radha, via phone conversation.
Original Note:
Surgical Immed Post Op Note
-
Primary Surgeon: Lucia Subramanian MD
Assisting Surgeon: SAHRA Fairchild
Pre-op Diagnosis: diverticulitis of colon
Post-op Diagnosis: same
Procedure Performed: 1) robotic sigmoidectomy 2) drainage (walled off) intrapelvis abscess 3) flexible sigmoidoscopy
Anesthesia Type: general plus local
Specimen / Cultures: sigmoid colon to include distal descending
Estimated Blood Loss: 50 cc
Complications: no immediate
Operative Findings: inflamed sigmoid with associated adhesions and walled off intrapelvic abscess
#19 Srinivasa in pelvis.
Seth in bladder.
Will send to med surg.
Given abscess with continue antibiotics for a few days.
[2024-11-06 18:32] LABS: % Basophils 0.1 % (0-2); % Immature Granulocytes 0.3 % (0-0.5); % Lymphocytes 6.8 % (20.5-51.1); % Monocytes 2.2 % (1.7-9.3); % Neutrophils 90.6 % (42.2-75.2); Absolute Monocytes 0.3 10^3/uL (0.1-0.6); Absolute Neutrophils 12.9 10^3/uL (1.4-6.5); Hemoglobin 13.7 g/dL (13.0-18.0); Mean Corp Hgb Conc. 33.4 g/dL (33.0-37.0); Mean Corpuscular Hgb 29.8 pg (27.0-31.0); Mean Corpuscular Volume 89.1 fL (80.0-94.0); Mean Platelet Volume 9.2 fL (7.4-10.4); Nucleated Red Blood Cells % 0 % (-); Platelet Count 271 10^3/uL (130-400); Red Cell Dist. Width 13.2 % (11.5-14.5); White Blood Cell Count 14.2 10^3/uL (4.8-10.8)
[2024-11-06 18:47] LABS: Blood Urea Nitrogen 21 mg/dl (9-20); Calcium 7.8 mg/dl (8.4-10.2); Carbon Dioxide 25 mmol/L (22-30); Chloride 100 mmol/L (98-107); Estimated Creatinine Clearance 71 ml/min; Glucose 145 mg/dl (70-99); Magnesium 2.2 mg/dl (1.6-2.3); Potassium 3.9 mmol/L (3.5-5.1); Sodium 135 mmol/L (135-145); eGFR > 60.00
[2024-11-06] MEDS: NORMOSOL-R/PLASMALYTE-A 1000 IV (19:30)
[2024-11-06] MEDS: TYLENOL PO (19:36)
[2024-11-06] MEDS: TORADOL 10 MG IV (19:36)
--- NOTE | 2024-11-06 19:38 | PTCARENOTE ---
Pt admitted to 2108 from PACU. AAOx3, drowsy but arousable. VSS. Pt c/o R side abd pain, medicated with scheduled toradol. 5 lap sites CDI. MARILYN with scant serosanguineous drainage. Seth draining green/clear urine. tolerating ice chips, and sips of
water. Call white within reach.
[2024-11-06] MEDS: DILAUDID 0.5 MG IV (20:50)
[2024-11-06] MEDS: DIOVAN 80 MG PO (22:25)
[2024-11-06] MEDS: LIPITOR 20 MG PO (22:25)
[2024-11-06] MEDS: FLOMAX 0.4 MG PO (22:25)
[2024-11-07] MEDS: DILAUDID 0.5 MG IV ×2 (00:04→15:48)
[2024-11-07] MEDS: TYLENOL PO ×2 (00:39→03:51)
[2024-11-07] MEDS: TORADOL 10 MG IV ×4 (02:22→20:04)
[2024-11-07] MEDS: NORMOSOL-R/PLASMALYTE-A 1000 IV (02:23)
[2024-11-07 03:05] VITALS: BP 153/89
[2024-11-07 05:33] LABS: % Basophils 0.2 % (0-2); % Immature Granulocytes 0.5 % (0-0.5); % Lymphocytes 7.9 % (20.5-51.1); % Monocytes 7.6 % (1.7-9.3); % Neutrophils 83.8 % (42.2-75.2); Absolute Immature Granulocytes 0.1 10^3/uL (0-0.05); Absolute Lymphocytes 0.9 10^3/uL (1.2-3.4); Absolute Monocytes 0.9 10^3/uL (0.1-0.6); Absolute Neutrophils 9.8 10^3/uL (1.4-6.5); Hematocrit 40.4 % (39.0-52.0); Hemoglobin 13.5 g/dL (13.0-18.0); Mean Corp Hgb Conc. 33.4 g/dL (33.0-37.0); Mean Corpuscular Hgb 29.2 pg (27.0-31.0); Mean Corpuscular Volume 87.3 fL (80.0-94.0); Mean Platelet Volume 9.6 fL (7.4-10.4); Nucleated Red Blood Cells % 0 % (-); Platelet Count 287 10^3/uL (130-400); Red Blood Cell Count 4.63 10^6/uL (4.70-6.10); Red Cell Dist. Width 12.9 % (11.5-14.5); White Blood Cell Count 11.7 10^3/uL (4.8-10.8)
[2024-11-07 05:58] LABS: Blood Urea Nitrogen 17 mg/dl (9-20); Calcium 8.3 mg/dl (8.4-10.2); Carbon Dioxide 27 mmol/L (22-30); Chloride 102 mmol/L (98-107); Estimated Creatinine Clearance 79 ml/min; Glucose 118 mg/dl (70-99); Magnesium 2.4 mg/dl (1.6-2.3); Potassium 4.5 mmol/L (3.5-5.1); Sodium 138 mmol/L (135-145); eGFR > 60.00
[2024-11-07 06:00] VITALS: BMI 30.3
[2024-11-07] MEDS: DILAUDID 0.25 MG IV (06:08)
[2024-11-07 07:15] VITALS: BP 141/80
[2024-11-07] MEDS: ENTEREG 12 MG PO (08:10)
[2024-11-07] MEDS: PROTONIX 40 MG PO (08:10)
[2024-11-07] MEDS: TYLENOL 650 MG PO ×4 (08:10→20:05)
--- NOTE | 2024-11-07 09:57 | W.PN.CRS1 ---
Today's Communication / Plan
-
Full liquids
Lovenox
Discontinue Seth
Aspirin 81
Assessment/Plan
-
POD#1 robotic sigmoidectomy and drainage (walled off) intrapelvis abscess
WBC 11.7, Hgb 13.5
vitals normal
-Advance diet to full liquids
-Discontinue Seth
-Continue MARILYN drain until discharge.
-Continue IV antibiotics while inpatient. Plan for a total course of 7 days.
-Start Lovenox for DVT prophylaxis. Teds and SCDs in place.
-Incentive spirometry every hour while awake
-OR pathology pending
-Will restart aspirin 81 mg daily
-Out of bed as tolerated
-Pain control: Tylenol and Toradol standing, Dilaudid as needed
-DC IV fluids when tolerating p.o. intake
Subjective Data
Procedure
11/06/24- 1) robotic sigmoidectomy 2) drainage (walled off) intrapelvis abscess 3) flexible sigmoidoscopy
Subjective Data
Date of Service: November 07, 2024
The patient states he has some intermittent hiccups. He denies nausea or vomiting. He otherwise feels well. He has some mild abdominal pain. He is very thirsty.
Objective Data
-
Vital Signs
Temp Pulse Resp BP Pulse Ox
98.0 F 81 16 141/80 97
11/07/24 07:15 11/07/24 07:15 11/07/24 07:15 11/07/24 07:15 11/07/24 07:15
Intake & Output
11/06/24 11/07/24 11/08/24
06:59 06:59 06:59
Intake Total 1160 / 1160
Output Total 2491 / 2491
Balance -1331 / -1331
Intake:
Oral fluids 240 / 240
IV fluids (Total)
Output:
Drain Output (Total)
Right Abdomen Allen-Roberto
Urine, Seth 2400 / 2399
Lab Results
11/07/24 04:31
11/07/24 04:31
Physical Exam
-
General: No Acute Distress and AOx3
Abdomen: Soft, Non Distended and Tender (mild around incisions)
Skin: Warm and Dry
Incision: Clear, Dry, Intact
[2024-11-07 11:06] VITALS: BP 144/77
--- NOTE | 2024-11-07 12:10 | CM ---
Met with pt at bedside
Pt reports he lives in a 2 story home with his girl friend; 1 step to enter; 12 steps to 2nd fl. + 1/2 bath on FF
Independent at baseline, employed, drives
DME - none
SNF/HH - no past hx
Has ride at discharge
PCP - [facility]
Pharm - [facility]
Plan - anticipate home no needs
[2024-11-07] MEDS: INVANZ 60 MG IV (13:07)
[2024-11-07 15:00] VITALS: BP 150/78
[2024-11-07] MEDS: LOVENOX 40 MG SC (17:21)
[2024-11-07] MEDS: NORMOSOL-R/PLASMALYTE-A IV (20:01)
[2024-11-07] MEDS: ENTEREG PO (20:03)
[2024-11-07] MEDS: LIPITOR 20 MG PO (22:00)
[2024-11-07] MEDS: DIOVAN 80 MG PO (22:00)
[2024-11-07] MEDS: FLOMAX 0.4 MG PO (22:00)
[2024-11-07 23:10] VITALS: BP 139/87
[2024-11-07] MEDS: ZOFRAN 4 MG IV (23:45)
[2024-11-08] MEDS: DILAUDID 0.5 MG IV (00:27)
[2024-11-08] MEDS: TYLENOL PO ×2 (00:31→05:08)
[2024-11-08] MEDS: TORADOL 10 MG IV ×3 (02:28→16:10)
[2024-11-08 07:57] VITALS: BP 156/82
[2024-11-08] MEDS: TYLENOL 650 MG PO ×3 (08:03→16:10)
[2024-11-08] MEDS: LOW STRENGTH ASPIRIN 81 MG PO (08:03)
[2024-11-08] MEDS: PROTONIX 40 MG PO (08:03)
[2024-11-08] MEDS: ENTEREG PO (08:09)
--- NOTE | 2024-11-08 08:40 | W.PN.GS2 ---
Addendum entered and electronically signed by Chauncey Garay MD 11/08/24 09:09:
Patient seen and examined. Agree with assessment plan as documented below.
No complaints. Tolerating diet. Passing flatus and nonbloody stools. No nausea or vomiting. Ambulating. Voiding.
Gen: NAD
Abd: soft, NT/ND, non-peritoneal, incisions c/d/i - no erythema or drainage, mild ecchymosis
Patient is a 69 yo female with a h/o diverticulitis of the colon now POD #2 robotic sigmoidectomy and drainage of walled off abscess
AFVSS
Labs pending
Recovering well. No concerns. Possible discharge today versus tomorrow.
--Advance to LRD
--C/W abx, will transition to PO upon d/c for a total of 7 day course
--Pain control: Tylenol, Toradol, Oxycodone
--HLIV
--OOB/Ambulate
--DVT: SCD's and Lovenox
--Home meds
--Tentative d/c later today pending diet tolerance/laboratory findings
Original Note:
Today's Communication / Plan
-
Advance diet
Dispo planning
Assessment / Plan
-
69 yo female with a h/o diverticulitis of the colon now POD #2 robotic sigmoidectomy and drainage of walled off abscess
AFVSS
Voiding since tolbert removed
Passing flatus/stools
Labs pending
--Advance to LRD
--C/W abx, will transition to PO upon d/c for a total of 7 day course
--OOB/Ambulate
--Multimodal analgesics scheduled and prn. Added more PO options.
--SCD's and lovenox for vte ppx
--Tentative d/c later today pending diet tolerance/laboratory findings
Subjective Data
-
Date of Service: November 08, 2024
Patient seen and examined at bedside with Dr. Garay. Denies n/v. Tolerating fulls. Passing flatus and stools. Pain is minimal and well managed.
Objective Data
-
Intake and Output
11/07/24 11/08/24 11/09/24
06:59 06:59 06:59
Intake Total 1160 / 1160 3460 / 3460
Output Total 2491 / 2491 1555 / 1555
Balance -1331 / -1331 1905 / 1905
Intake:
Oral fluids 240 / 240 2920 / 2920
IV fluids (Total) 920 / 920 480 / 480
IV piggybacks 60 / 60
Output:
Drain Output (Total) 55 / 55
Right Abdomen Allen-Roberto 55 55
Urine, Tolbert 2400 / 2400 450 / 450
Urine, Voided 1050 / 1050
Vital Signs
Temp Pulse Resp BP Pulse Ox
98.4 F 88 20 156/82 96
11/08/24 07:57 11/08/24 07:57 11/08/24 07:57 11/08/24 07:57 11/08/24 07:57
Calcium 8.3 mg/dl (8.4-10.2) L 11/07/24 04:31
Magnesium 2.4 mg/dl (1.6-2.3) H 11/07/24 04:31
Total Bilirubin 0.8 mg/dl (0.2-1.3) 10/31/24 07:41
AST 26 U/L (17-59) 10/31/24 07:41
ALT 39 U/L (0-50) 10/31/24 07:41
Alkaline Phosphatase 54 U/L (38-126) 10/31/24 07:41
Total Protein 7.7 g/dl (6.3-8.2) 10/31/24 07:41
Albumin 4.6 g/dl (3.5-5.0) 10/31/24 07:41
Physical Exam
-
Gen: NAD
Abd: soft, ND, mild tenderness to incisions, non-peritoneal
[2024-11-08 08:49] LABS: % Basophils 0.3 % (0-2); % Eosinophils 0.4 % (0-6); % Immature Granulocytes 0.3 % (0-0.5); % Lymphocytes 12.2 % (20.5-51.1); % Monocytes 8.9 % (1.7-9.3); % Neutrophils 77.9 % (42.2-75.2); Absolute Lymphocytes 1.2 10^3/uL (1.2-3.4); Absolute Monocytes 0.9 10^3/uL (0.1-0.6); Absolute Neutrophils 7.9 10^3/uL (1.4-6.5); Hematocrit 41.1 % (39.0-52.0); Hemoglobin 13.8 g/dL (13.0-18.0); Mean Corp Hgb Conc. 33.6 g/dL (33.0-37.0); Mean Corpuscular Hgb 29.6 pg (27.0-31.0); Nucleated Red Blood Cells % 0 % (-); Platelet Count 286 10^3/uL (130-400); Red Blood Cell Count 4.67 10^6/uL (4.70-6.10); White Blood Cell Count 10.2 10^3/uL (4.8-10.8)
[2024-11-08 09:14] LABS: Blood Urea Nitrogen 17 mg/dl (9-20); Calcium 9.1 mg/dl (8.4-10.2); Carbon Dioxide 28 mmol/L (22-30); Chloride 103 mmol/L (98-107); Estimated Creatinine Clearance 89 ml/min; Glucose 108 mg/dl (70-99); Potassium 4.6 mmol/L (3.5-5.1); Sodium 139 mmol/L (135-145); eGFR > 60.00
[2024-11-08] MEDS: INVANZ 60 MG IV (12:29)
[2024-11-08] MEDS: ENTEREG 12 MG PO (12:36)
--- NOTE | 2024-11-08 16:00 | W.DCSUMMARY ---
Discharge Summary
Discharge Data
Date of Admission: 11/06/24
Date of Discharge: 11/08/24
-
Pending Results: No
Hospital Course
Mr Fischer is a 69 yo male who presented for operative management of diverticulitis and underwent a robotic sigmoidectomy with wall off intrapelvic abscess noted intraoperatively. He tolerated the procedure well without complication. He had good bowel
recovery post operatively and diet was able to be advanced and well tolerated. MARILYN drain was left in place during the immediate post operative period had noted return of serosanguineous fluid without purulence and was removed prior to discharge. He
was maintained on antibiotics during his course of stay and was discharged on oral antibiotics for an additional 10 days. Outpatient follow up planned in the coming weeks with surgical team.
Discharge Plan
-
Patient Disposition: Home (Routine Discharge)
Discharge Diagnosis/Procedures: 1) robotic sigmoidectomy 2) drainage (walled off) intrapelvis abscess 3) flexible sigmoidoscopy
Condition: Good
Diet: Low Residue
Activity: No strenuous activity
Additional Activity: No lifting over 10lbs (gallon of milk)
Driving Restrictions: No driving for 3 weeks
Bathing Restrictions: OK to Shower
Wound Care: Allow glue to naturally fall off. Do not pick at incision. Cover the site where your drain was with clean gauze and change daily and as needed. Ok to remove dressing for showers.
Instructions: Low-fiber diet
Referrals:
Ryan Subramanian MD [Active] - in two weeks
Jasiel [facility] MD [Family Provider] -
Prescriptions:
New
oxycodone 5 mg tablet
5 mg PO Q4HPRN PRN (Reason: breakthrough/severe pain) Qty: 15 0RF
acetaminophen 325 mg tablet
650 mg PO Q4HPRN PRN (Reason: mild pain) Qty: 1 0RF
ibuprofen 200 mg tablet
400 - 600 mg PO Q6HPRN PRN (Reason: moderate pain) Qty: 1 0RF
amoxicillin-pot clavulanate 875-125 mg tablet
1 tab PO Q12 Qty: 10 0RF
Continued
aspirin 81 mg Tablet,Chewable
81 mg PO HS
omega 0-sny-dfn-fish oil [Fish Oil] 1,200 (144-216) mg Capsule
1 cap PO HS
valsartan 80 mg Tablet
80 mg PO HS
simvastatin 40 mg Tablet
40 mg PO HS
tamsulosin 0.4 mg Capsule
0.4 mg PO HS
Discontinued
metronidazole [Flagyl] 500 mg Tablet
500 mg PO PRE OP
neomycin 500 mg Tablet
500 mg PO PRE OP
Sutab 1.479-0.188- 0.225 gram Tablet
0 tab PO PER PKG DIR
Discharge Orders:
Discharge Patient (As Directed); Ordered 11/08/24
Ordered By: Iva Harmon
Discharge Date and Time
Print Language: TRINIDADIAN
[2024-11-08 16:48] VITALS: BP 142/87
== END 2024-11-08 17:05 | disposition home or self-care (01) | DRG 329 ==
LOC: 2 SOUTH 11:34
PROVIDERS: Physician Assistant; ADMITTING PHYSICIAN Surgery; FAMILY PHYSICIAN Family Medicine
PROC: 0W9F30Z Drainage of Abdominal Wall with Drainage Device, Percutaneous Approach (ICD-10-PCS; 2024-11-07)
PROC: 0DBN4ZZ Excision of Sigmoid Colon, Percutaneous Endoscopic Approach (ICD-10-PCS; 2024-11-07)
PROC: 8E0W4CZ Robotic Assisted Procedure of Trunk Region, Percutaneous Endoscopic Approach (ICD-10-PCS; 2024-11-07)
DX: K57.80 Diverticulitis of intestine, part unspecified, with perforation and abscess without bleeding (principal); K65.1 Peritoneal abscess
CPT/HCPCS: 88307; 36415; 80048; 80053; 83036; 83735; 85025; 85027; 85610; 85730; 86850; 86900; 86901; 93005; J1335; P9045